=== PATIENT | female | born 1950 | race Caucasian/White ===

== ENCOUNTER → 2018-08-09 09:54 | Outpatient (CLI) | payer MEDICARE, SELFPAY ==
--- NOTE | 2018-08-09 10:02 | MM_ITS ---
MM Dig screening mamm BI w/CAD CAD Screening COMPARISON: Digital mammograms with CAD 05/18/2012 INDICATION: There is no personal or family history of breast cancer TECHNIQUE: Standard CC and MLO images were obtained. R2 CAD reviewed. FINDINGS: The breasts are composed primarily of fat with minimal scattered fiber glandular densities in each breast. There is minimal vascular calcification right breast. There is a mole marker in each breast. There is no suspicious lesion and there are no suspicious microcalcifications. IMPRESSION: Fatty type breast parenchyma no suspicious lesion seen BI-RADS Category: 2 Benign Finding(s) RECOMMENDED FOLLOW-UP: 1YR - 1 YEAR FOLLOW-UP (A letter has been sent to the patient regarding results of the study.)
--- NOTE | 2018-08-09 10:03 | XR_ITS ---
XR DEXA axial skeleton HISTORY: ITS.REASON: POST MENOPAUSAL ORDERING PHYSICIAN: Stu Briceno MD PATIENT AGE: 68 years COMPARISON: None FINDINGS: The BMD measured at the AP spine L1-L4 is 0.969 g/cm squared with a T score of -1.8. This is considered Osteopenic according to the World Health Organization criteria. Fracture risk is Moderate. Treatment is advised. Left femoral neck density has a T score of -1.3 consistent with osteopenia. IMPRESSION: Osteopenia with moderate fracture risk. Treatment recommended. Recommend follow-up exam July 2020
== END ==
PROVIDERS: Family Provider Internal Medicine Adolescent Medicine; PCP Internal Medicine Adolescent Medicine; Visit Provider Internal Medicine Adolescent Medicine
DX: Z12.31 Encounter for screening mammogram for malignant neoplasm of breast (principal); Z13.820 Encounter for screening for osteoporosis; Z78.0 Asymptomatic menopausal state
CPT/HCPCS: 77067; 77080

== ENCOUNTER → 2018-11-07 14:34 | Outpatient (CLI) | payer MEDICARE, SELFPAY ==
[2018-11-07 15:19] LABS: Basophils % 0.5 % (0.1-2.0); Eosinophils # 0.2 K/mm3 (0.0-0.4); Eosinophils % 3.1 % (0.1-12.0); Hematocrit 43.8 % (37.0-47.0); Hemoglobin 13.9 g/dL (12.2-16.2); Lymphocytes # 1.4 K/mm3 (0.7-4.5); Lymphocytes % 17.7 % (10-50); Mean Corpuscular HGB Conc 31.8 g/dL (31.8-35.4); Mean Corpuscular Hemoglobin 28.3 pg (27.0-31.2); Mean Platelet Volume 7.5 fl (7.4-10.4); Monocytes # 0.3 K/mm3 (0.1-1.0); Monocytes % 4.3 % (1.7-9.3); Neutrophils # 5.7 K/mm3 (1.8-7.8); Neutrophils % 74.4 % (37.0-80.0); Platelet Count 178 K/mm3 (142-424); Red Blood Count 4.92 M/mm3 (4.20-5.40); Red Cell Distribution Width 13.6 % (11.5-17.5); White Blood Count 7.7 K/mm3 (4.8-10.8)
[2018-11-07 16:54] LABS: Hemoglobin A1C 6.9 % (0.0-7.0)
[2018-11-07 19:11] LABS: Alanine Aminotransferase 30 U/L (12-78); Albumin Level 3.7 gm/dL (3.4-5.0); Albumin/Globulin Ratio 1.1 (1.1-1.8); Alkaline Phosphatase 90 U/L (46-116); Anion Gap 16.4 mEq/L (5-15); Aspartate Amino Transferase 20 U/L (15-37); Bilirubin,Total 0.5 mg/dL (0.2-1.0); Blood Urea Nitrogen 19 mg/dL (7-18); Calcium 8.9 mg/dL (8.5-10.1); Carbon Dioxide 24 mmol/L (21.0-32.0); Chloride 104 mmol/L (98-107); Chol/HDL Ratio 2.6 (1-3.5); Cholesterol 133 mg/dL (140-200); Creatinine,Serum 0.72 mg/dL (0.55-1.02); Estimated Glomerular Filt Rate 81 ml/min (>60); GFR (African American) 98 ML/MIN (>60); Globulin 3.4 gm/dl (1.3-3.2); Glucose 105 mg/dL (74-106); HDL Cholesterol 51 mg/dL (29-89); LDL Cholesterol 65 mg/dL (0-130); Potassium 4.4 mmoL/L (3.5-5.1); Sodium 140 mmol/L (136-145); Thyroid Stimulating Hormone 1.63 uIU/ml (0.358-3.740); Total Protein,Serum 7.1 gm/dL (6.4-8.2); Triglycerides 86 mg/dL (30-200); VLDL Cholesterol 17 mg/dL (0-40)
== END ==
PROVIDERS: Visit Provider Internal Medicine Adolescent Medicine
DX: E11.9 Type 2 diabetes mellitus without complications (principal); E78.5 Hyperlipidemia, unspecified; G25.0 Essential tremor
CPT/HCPCS: 36415; 80053; 80061; 83036; 84443; 85025

== ENCOUNTER → 2021-01-28 08:47 | Outpatient (CLI) | payer MEDICARE, SELFPAY ==
[2021-01-28 09:32] LABS: Alanine Aminotransferase 23 U/L (12-78); Albumin Level 4.5 g/dl (3.5-5.0); Albumin/Globulin Ratio 1.6 (1.1-1.8); Alkaline Phosphatase 99 U/L (38-126); Anion Gap 13.8 mEq/L (5-15); Aspartate Amino Transferase 29 U/L (14-36); Bilirubin,Total 0.7 mg/dl (0.2-1.3); Blood Urea Nitrogen 19 mg/dl (7-17); Calcium 9.8 mg/dl (8.4-10.2); Carbon Dioxide 24 mmol/L (22.0-30.0); Chloride 107 mmol/L (98-107); Chol/HDL Ratio 2.2 (1-3.5); Cholesterol 138 mg/dl (140-200); Estimated Glomerular Filt Rate 99 ml/min (>60); GFR (African American) 120 ML/MIN (>60); Globulin 2.8 g/dL (1.3-3.2); Glucose 217 mg/dl (74-100); HDL Cholesterol 64 mg/dl (40-60); Potassium 4.8 mmoL/L (3.5-5.1); Sodium 140 mmol/L (136-145); Total Protein,Serum 7.3 g/dl (6.3-8.2); Triglycerides 109 mg/dl (30-150); VLDL Cholesterol 22 mg/dL (0-40)
[2021-01-28 09:40] LABS: Hemoglobin A1C 7.8 % (4.0-6.0)
[2021-01-28 09:43] LABS: Direct LDL Cholesterol 51.51 mg/dL (100-129)
== END ==
PROVIDERS: Visit Provider Internal Medicine Adolescent Medicine
DX: E11.9 Type 2 diabetes mellitus without complications (principal); E78.5 Hyperlipidemia, unspecified
CPT/HCPCS: 36415; 80053; 80061; 83036